=== PATIENT | female | born 1960 | race Caucasian/White ===

== ENCOUNTER 2017-03-27 09:06 | Emergency (ER) | payer BC ==
--- NOTE | 2017-03-27 16:13 | UC ---
Respiratory Complaint HPI - HPI Summary HPI Summary: This is a 57 yo female who presents with c/o sinus congestion, cough and ST x 2- 3d. She has been feverish. No recent sick contacts. She reports some improvement with Theraflu. No CP, CRAWLEY, abd pain, n/v. - History of Current Complaint Chief Complaint: UCGeneralIllness Stated Complaint: SINUS/ CHEST CONGESTION Time Seen by Provider: 03/27/17 10:28 Pain Intensity: 0 Pain Scale Used: 0-10 Numeric - Allergies/Home Medications Allergies/Adverse Reactions: Allergies Allergy/AdvReac Type Severity Reaction Status Date / Time No Known Allergies Allergy Verified 03/27/17 09:29 Home Medications: Home Medications Rjouazixycjid-Pramznfdkro-Tq [Theraflu Cold & Cough 10-20-20 mg] 1 PRN 03/27/17 [History] PMH/Surg Hx/FS Hx/Imm Hx Previously Healthy: No - seziure d/o - Surgical History Surgical History: Yes Surgery Procedure, Year, and Place: HYSTERECTOMY; RT SIDE BRAIN TUMOR REMOVED 2007 - Family History Known Family History: Positive: Hypertension - Social History Alcohol Use: Occasionally Substance Use Type: None Smoking Status (MU): Never Smoked Tobacco - Immunization History Most Recent Influenza Vaccination: 01/28 Review of Systems Constitutional: Negative Skin: Negative Eyes: Negative ENT: Sore Throat, Nasal Discharge Respiratory: Cough Cardiovascular: Negative Gastrointestinal: Negative Genitourinary: Negative Motor: Negative Neurovascular: Negative Musculoskeletal: Negative Neurological: Negative Psychological: Negative Is Patient Immunocompromised?: No All Other Systems Reviewed And Are Negative: Yes Physical Exam Triage Information Reviewed: Yes Appearance: Well-Appearing Vital Signs: Initial Vital Signs Temp 99.1 F 03/27/17 09:25 Vital Signs Reviewed: Yes ENT Exam: Normal ENT: Positive: Normal ENT inspection Neck exam: Normal Neck: Positive: Supple, Nontender, No Lymphadenopathy Respiratory: Positive: Chest non-tender, Lungs clear, Normal breath sounds. Negative: Crackles, Rhonchi, Stridor, Wheezing Cardiovascular Exam: Normal Cardiovascular: Positive: RRR, No Murmur Abdominal Exam: Normal Abdomen Description: Positive: Nontender Musculoskeletal Exam: Normal Musculoskeletal: Positive: Strength Intact Neurological: Positive: Alert Psychological Exam: Normal Skin Exam: Normal Skin: Negative: rashes Respiratory Course/Dx - Course Course Of Treatment: This is a 57 yo female with 3-4 days of congestion, cough and ST. Exam benign. Likely a viral URI. Recommend supportive care. - Differential Dx/Diagnosis Differential Diagnosis/HQI/PQRI: Bronchitis, Laryngitis, Sinusitis Provider Diagnoses: 1. Viral URI Discharge - Discharge Plan Condition: Stable Disposition: HOME Patient Education Materials: Upper Respiratory Infection (ED) Forms: *Work Release Referrals: Ying Peralta MD [Primary Care Provider] - If Needed Additional Instructions: Instructions: 1. This is likely a viral syndrome and will take several additional days to improve 2. Cont to use Theraflu if that helps, you can add Sudafed for congestion relief during daytime hours and Benadryl at night
== END 2017-03-27 11:50 | disposition home or self-care (01) ==
LOC: UCEAST 09:06
DX: J06.9 Acute upper respiratory infection, unspecified (principal)
CPT/HCPCS: 99211; G0463